=== PATIENT | female | born 1940 | race Caucasian/White ===

== ENCOUNTER 2017-11-01 21:13 | Inpatient (IN) | payer OTHER, MEDICAID ==
[~2017-11-01] VITALS: Ht 162.6 cm; Wt 86.3 kg
[2017-11-01 21:56] LABS: BASOPHIL % 0.6 % (0-2); PLATELET COUNT 199 x10^3mcL (130-400); RED CELL DISTRIBUTION WIDTH 13.1 % (11.5-14.5)
[2017-11-01 22:08] LABS: CALCIUM 8.6 mg/dL (8.5-10.1); CARBON DIOXIDE 27.9 mmol/L (21-32); CHLORIDE SERUM 100 mmol/L (98-107); GLUCOSE SERUM 318 mg/dL (74-106); POTASSIUM SERUM 3.8 mmol/L (3.5-5.1); SODIUM SERUM 139 mmol/L (136-145)
[2017-11-01 22:13] LABS: ALKALINE PHOSPHATASE 109 U/L (46-116); ALT/SGPT 23 U/L (14-59); AST/SGOT 16 U/L (15-37); BILIRUBIN TOTAL 0.2 mg/dL (0.20-1.00); TOTAL PROTEIN, SERUM 6.9 g/dL (6.4-8.2)
[2017-11-01 22:15] LABS: ALBUMIN 3.2 g/dL (3.4-5.0)
[2017-11-02] VITALS (7 sets, daily range): BP systolic 101–135; BP diastolic 46–66; Ht 162.6 cm; Wt 86.3 kg
[2017-11-02] MEDS ORDERED: LOVASTATIN40 MG PO (01:56)
[2017-11-02] MEDS ORDERED: BENAZEPRIL HYDR20 M1 PO (01:56)
[2017-11-02] MEDS ORDERED: ASPIR 8181 MG PO (01:56)
[2017-11-02] MEDS ORDERED: HUMALOG100 UNIT/1 SQ (01:57)
[2017-11-02] MEDS ORDERED: LANTUS SOLOS100 U/M1 SQ (01:57)
[2017-11-02 03:34] LABS: T3 TOTAL 0.73 ng/mL
[2017-11-02 04:26] LABS: MAGNESIUM 1.7 mg/dL (1.8-2.4); PHOSPHOROUS 3.3 mg/dL (2.5-4.9)
[2017-11-02 04:28] LABS: CHOLESTEROL/HDL RATIO 4.3
[2017-11-02 05:48] LABS: FREE T4 1.08 ng/dL (0.76-1.46); FREE THYROXINE INDEX 2.6 ug/dL (1.4-4.5); T4(THYROXINE) 6.1 ug/dL (4.7-13.3)
[2017-11-02 07:19] LABS: BASOPHIL % 0.4 % (0-2); PLATELET COUNT 179 x10^3mcL (130-400); RED CELL DISTRIBUTION WIDTH 13.5 % (11.5-14.5)
[2017-11-02 07:34] LABS: CALCIUM 8.6 mg/dL (8.5-10.1); CARBON DIOXIDE 29.6 mmol/L (21-32); CHLORIDE SERUM 102 mmol/L (98-107); CREATININE SERUM 0.9 mg/dL (0.6-1.0); GLUCOSE SERUM 223 mg/dL (74-106); POTASSIUM SERUM 3.9 mmol/L (3.5-5.1); SODIUM SERUM 140 mmol/L (136-145)
[2017-11-02 08:53] LABS: UA SPECIFIC GRAVITY <=1.005 (1.005-1.035); microscopic required? YES; urine erythrocyte NEGATIVE (NEGATIVE)
[2017-11-02] MEDS ORDERED: APAP/HYDROCODON1 T13 PO (14:56)
[2017-11-02] MEDS ORDERED: METOPROLOL TART25 M1 PO (14:56)
[2017-11-03 06:09] LABS: BASOPHIL % 0.4 % (0-2); PLATELET COUNT 164 x10^3mcL (130-400); RED CELL DISTRIBUTION WIDTH 13.2 % (11.5-14.5)
[2017-11-03 06:21] VITALS: BP 111/54
[2017-11-03 06:49] LABS: CALCIUM 8.3 mg/dL (8.5-10.1); CHLORIDE SERUM 103 mmol/L (98-107); GLUCOSE SERUM 185 mg/dL (74-106); POTASSIUM SERUM 4.2 mmol/L (3.5-5.1); SODIUM SERUM 139 mmol/L (136-145)
[2017-11-03 10:13] VITALS: BP 103/40
[2017-11-03 13:04] VITALS: BP 116/47
[2017-11-03 18:20] VITALS: BP 113/87
[2017-11-03 22:10] VITALS: BP 121/56; BP 126/49
[2017-11-04 06:29] LABS: BASOPHIL % 0.7 % (0-2); PLATELET COUNT 150 x10^3mcL (130-400); RED CELL DISTRIBUTION WIDTH 12.9 % (11.5-14.5)
[2017-11-04 06:33] VITALS: BP 115/59
[2017-11-04 06:44] LABS: CALCIUM 8.3 mg/dL (8.5-10.1); CARBON DIOXIDE 27.1 mmol/L (21-32); CHLORIDE SERUM 104 mmol/L (98-107); CREATININE SERUM 0.9 mg/dL (0.6-1.0); GLUCOSE SERUM 134 mg/dL (74-106); MAGNESIUM 1.7 mg/dL (1.8-2.4); PHOSPHOROUS 4.1 mg/dL (2.5-4.9); POTASSIUM SERUM 3.8 mmol/L (3.5-5.1); SODIUM SERUM 140 mmol/L (136-145)
[2017-11-04 08:30] VITALS: BP 141/56
[2017-11-04 14:00] VITALS: BP 117/55
[2017-11-04] MEDS ORDERED: TYL325 PO (14:12)
[2017-11-04] MEDS ORDERED: LOT20 PO (14:12)
[2017-11-04] MEDS ORDERED: NIT0.4 SL (14:12)
[2017-11-04] MEDS ORDERED: ATORVASTATIN CA40 M1 PO (14:12)
== END 2017-11-04 15:05 | disposition short-term general hospital (02) | DRG 280 ==
LOC: ED 21:13 → DU 11-02 00:27
PROVIDERS: Emergency Medicine; Family Medicine; Internal Medicine Interventional Cardiology
PROC: B2111ZZ Fluoroscopy of Multiple Coronary Arteries using Low Osmolar Contrast (ICD-10-PCS; 2017-11-02)
PROC: B2151ZZ Fluoroscopy of Left Heart using Low Osmolar Contrast (ICD-10-PCS; 2017-11-02)
PROC: B41F1ZZ Fluoroscopy of Right Lower Extremity Arteries using Low Osmolar Contrast (ICD-10-PCS; 2017-11-02)
PROC: 4A023N7 Measurement of Cardiac Sampling and Pressure, Left Heart, Percutaneous Approach (ICD-10-PCS; principal; 2017-11-02 13:30)
DX: I21.3 ST elevation (STEMI) myocardial infarction of unspecified site (principal); N17.0 Acute kidney failure with tubular necrosis; E44.0 Moderate protein-calorie malnutrition; I25.10 Atherosclerotic heart disease of native coronary artery without angina pectoris; I10 Essential (primary) hypertension; E78.00 Pure hypercholesterolemia, unspecified; E11.65 Type 2 diabetes mellitus with hyperglycemia; Z88.1 Allergy status to other antibiotic agents; Z79.4 Long term (current) use of insulin; Z68.38 Body mass index [BMI] 38.0-38.9, adult; K80.20 Calculus of gallbladder without cholecystitis without obstruction; E78.5 Hyperlipidemia, unspecified; E83.42 Hypomagnesemia; E11.51 Type 2 diabetes mellitus with diabetic peripheral angiopathy without gangrene; Z91.19 Patient's noncompliance with other medical treatment and regimen
CPT/HCPCS: CLHCL; 83880; 84439; 85378; C1760; C1769; C1894; J1644; J1815; J2001; J2250; J2405; J3010; J7030; J7040; Q0092; Q9967